=== PATIENT | male | born 1970 | race Caucasian/White ===

== ENCOUNTER 2019-02-11 16:27 | Emergency (ER) | payer OTHER ==
[~2019-02-11] VITALS: Ht 180.3 cm; Wt 79.4 kg
[2019-02-11 16:32] VITALS: BP_SYST 141
[2019-02-11] MEDS ORDERED: LIDOCAINE 1% 10 MG/ML, 20 ML MDV INJ ONE (16:45)
[2019-02-11] MEDS ORDERED: BACITRACIN/POLYMYXIN B SULFATE 30 GM TOPICAL OINT. TP ONE (16:45)
[2019-02-11] MEDS ORDERED: BACITRACIN 1 GM OINT TP ONE (17:03)
[2019-02-11 18:10] VITALS: BP_SYST 130
== END 2019-02-11 18:10 | disposition home or self-care (01) ==
LOC: SED 16:27
DX: L60.0 Ingrowing nail (principal); L03.032 Cellulitis of left toe; R03.0 Elevated blood-pressure reading, without diagnosis of hypertension
CPT/HCPCS: 11730; 99283; J2001